=== PATIENT | female | born 1965 | race Caucasian/White ===

== ENCOUNTER → 2020-10-15 | Outpatient (CLI) | payer OTHER | LOC: HEART 192 09-01 11:00 → HEART CORB 13:51 | DX: R00.2 Palpitations (principal); R06.02 Shortness of breath; I10 Essential (primary) hypertension | CPT/HCPCS: 93306 ==

== ENCOUNTER → 2020-11-27 | Outpatient (CLI) | payer OTHER ==
[~2020-11-27] MED LIST: ASPIRIN EC81 MG PO; ATORVASTATIN CA40 MG PO; DULOXETINE HCL30 MG PO; HYDROXYZINE HCL25 MG PO; LISINOPRIL-HCT1 EACH PO; LOVENOX60 MG/0.6 SC; PROTONIX 40 MG40 M1 PO; SERTRALINE HCL25 MG PO; VITAMIN D21250 MCG PO; WARFARIN SODIUM1 MG PO
[2020-11-27 15:08] LABS: HEMOGLOBIN 11.1 gm/dl (12.3-15.3); RED BLOOD COUNT 3.76 M/UL (4.00-5.10); WHITE BLOOD COUNT 8.8 K/UL (4.5-11.0)
[2020-11-27 15:23] LABS: BUN/CREATININE RATIO 12 (0-10)
== END ==
LOC: RAD 14:41
PROVIDERS: Internal Medicine Cardiovascular Disease
DX: I74.9 Embolism and thrombosis of unspecified artery (principal)
CPT/HCPCS: 36415; 71046; 80048; 85025; 85610

== ENCOUNTER → 2020-11-28 | Outpatient (CLI) | payer OTHER | LOC: CATH 11-18 09:00 | DX: Z01.812 Encounter for preprocedural laboratory examination (principal); I74.9 Embolism and thrombosis of unspecified artery; Z20.822 Contact with and (suspected) exposure to COVID-19; R00.2 Palpitations; I10 Essential (primary) hypertension; I74.2 Embolism and thrombosis of arteries of the upper extremities; E78.5 Hyperlipidemia, unspecified; F17.210 Nicotine dependence, cigarettes, uncomplicated; E55.9 Vitamin D deficiency, unspecified; G47.33 Obstructive sleep apnea (adult) (pediatric); K21.9 Gastro-esophageal reflux disease without esophagitis | CPT/HCPCS: U0002 ==

== ENCOUNTER → 2021-01-06 | Day surgery (SDC) | payer OTHER ==
[~2021-01-06] VITALS: Ht 157.5 cm; Wt 64.0 kg
[~2021-01-06] MED LIST changes: +BUSPIRONE HCL5 MG PO; +HYDROCODON-ACE1 EAC2 PO; +HYDROCODON-ACE1 EAC4 PO; +LEVOFLOXACIN500 MG PO; +XARELTO1 EACH PO
[2021-01-06 11:45] LABS: HEMOGLOBIN 11.9 gm/dl (12.3-15.3); RED BLOOD COUNT 3.84 M/UL (4.00-5.10); WHITE BLOOD COUNT 10.9 K/UL (4.5-11.0)
[2021-01-06 12:07] LABS: BUN/CREATININE RATIO 12 (0-10)
== END | disposition home or self-care (01) ==
LOC: OR 10:30
PROVIDERS: Orthopaedic Surgery
DX: S42.021A Displaced fracture of shaft of right clavicle, initial encounter for closed fracture (principal); I10 Essential (primary) hypertension; K21.9 Gastro-esophageal reflux disease without esophagitis; E78.5 Hyperlipidemia, unspecified; F41.9 Anxiety disorder, unspecified; F32.A Depression, unspecified; F17.210 Nicotine dependence, cigarettes, uncomplicated; Z88.8 Allergy status to other drugs, medicaments and biological substances; Z79.02 Long term (current) use of antithrombotics/antiplatelets; Z79.899 Other long term (current) drug therapy; Z20.822 Contact with and (suspected) exposure to COVID-19; W19.XXXA Unspecified fall, initial encounter
CPT/HCPCS: 71045; 73000; 76000; 80048; 85027; 93005; C1713; J0690; J1100; J2001; J2250; J2370; J2405; J2704; J2710; J2795; J3010; J7030; J7120; U0002

== ENCOUNTER → 2021-07-22 | Outpatient (CLI) | payer OTHER | LOC: KOH-I 08:16 | DX: M87.052 Idiopathic aseptic necrosis of left femur (principal) | CPT/HCPCS: 73700 ==